=== PATIENT | male | born 1990 | race Caucasian/White ===

== ENCOUNTER 2016-08-30 22:05 | Inpatient (IN) | payer OTHER ==
--- NOTE | ~2016-08-30 | DS ---
Unit #: [id number] #: [id number] Patient: SEMAJ CEJA [id number] [address] [address] [id number] MR#: [id number] NAME: SEMAJ CEJA ROOM: 547 Age: 26 Sex: M Admission Date: 08/31/2016 : 1990 Discharge Date: 09/01/2016 Attending Physician: Syeda Irwin M.D. Primary Care Physician: Javier Louie M.D. DISCHARGE SUMMARY FINAL DIAGNOSES 1. Intractable nausea and vomiting, which is resolved. 2. Acute renal failure, most likely secondary to decreased intravascular volume, which is resolved. 3. Leukocytosis, possible secondary to dehydration which is resolved. 4. Opioid dependence/IV drug abuse. 5. Tobacco abuse. HOSPITAL COURSE A 26-year-old male who was admitted to the hospital on August 31, 2016 with vomiting. According to patient, he vomited multiple times. Came to ER and was admitted for dehydration and acute renal failure. Patient was treated with IV fluids, IV Protonix, and IV Zofran. Patient's blood workup is normal today. He wants to go home. Patient is able to tolerate diet. CT scan was done during hospitalization which shows dilated patulous lower esophagus with GI reflux. There is nothing to suggest esophageal stricture. Remaining exam was normal. Patient's urine drug screen is positive for amphetamine, marijuana, and opiates. Vital signs on discharge: Blood pressure is 114/75, respiratory rate 18, pulse 69, temperature 97.8, oxygen saturation is 98%. DISCHARGE INSTRUCTIONS 1. Patient is being discharged home in stable condition. 2. Followup primary care provider in one week. Dictated by... Rachel Dawn TD: 09/02/2016 10:17 JOB #: [id number] Unit #: [id number] #: [id number] Patient: SEMAJ CEJA DISCHARGE SUMMARY Page 1 of 1 X Syeda Irwin MD X DISCHARGE SUMMARY
--- NOTE | ~2016-08-30 | CT4 ---
[facility] A Service of [facility] & [facility] RADIOLOGY TEXT RESULTS PATIENT: SEMAJ CEJA LOCATION: [facility] 54- : [birth year] UNIT #: [id number] AGE: [address]: Syeda Irwin MD SEX: M ORDER DR: [id number] [facility] [address] [place], [place] [address] [id number] MR#: [id number] Acc #: [id number] NAME: SEMAJ CEJA : 1990 SEX: M STUDY DATE/TIME: 08/31/2016 02:45 UNIT: [facility] ROOM: [facility] STUDY DESCRIPTION: CT Abd and Pelv Wo Cont Attending Physician: Syeda Irwin M.D. Ordering Physician: Jan Raman M.D. Primary Care Physician: Javier Louie M.D. MEDICAL IMAGING REPORT This report is preliminary unless electronic signature is present EXAM CT abdomen and pelvis, 08/31 at 02:45. INDICATIONS Nausea and vomiting since 10:00 a.m. yesterday after using heroin. TECHNIQUE Axial noncontrast images were obtained through the abdomen and pelvis. Multiplanar reformats were obtained. No comparison. This CT exam was performed with one or more of the following radiation dose reduction techniques: automatic exposure control, adjustment of mA and/or kV according to patient size, and iterative reconstruction. FINDINGS Abdomen: Lung bases are clear. There is gastroesophageal reflux and the lower esophagus is dilated. The remainder of the unopacified GI tract is normal. No renal or ureteral stones. No hydronephrosis. The unenhanced solid organs are normal. No free fluid is seen. Pelvis: The appendix is normal. The remainder of the unopacified GI tract is normal as well. No lower ureteral stones. The bladder is normal. IMPRESSION 1. Dilated patulous lower esophagus with gastroesophageal reflux. There is nothing to suggest a lower esophageal stricture on these images. 2. The remainder of the GI tract including the appendix is normal. 3. No renal or ureteral stones. No hydronephrosis. Dictated by... Joselo Eckert Jr., M.D. THIS IS AN ELECTRONICALLY VERIFIED REPORT Joselo Eckert Jr., M.D. at 08/31/2016 9:22 PM [facility] A Service of [facility] RADIOLOGY TEXT RESULTS PATIENT: SEMAJ CEJA LOCATION: [place] [address] : [birth year] UNIT #: [id number] AGE: [address]: Syeda Irwin MD SEX: M ORDER DR: LUCIANA/elia TD: 08/31/2016 12:18 JOB #: [id number] MEDICAL IMAGING REPORT Page 1 of 1 COPY
--- NOTE | ~2016-08-30 | HP ---
Unit #: [id number] #: [id number] Patient: SEMJA CEJA [id number] [address] [address] [id number] I MR#: [id number] NAME: SEMAJ CEJA. ROOM: 54 Age: 26 Sex: M Admission Date: 08/31/2016 : 1990 Attending Physician: Syeda Irwin M.D. Primary Care Physician: Javier Louie M.D. HISTORY AND PHYSICAL CHIEF COMPLAINT Vomiting. HISTORY OF PRESENTING ILLNESS Mr. Marcial is a 26-year-old male who has a history of IV drug abuse, used IV heroin in the morning and then he started vomiting. According to him, he vomited almost 100 times. He was starting to get dizzy. He started to have abdominal pain and chest pain. Came to ER, was found to have acute renal failure, dehydration and leukocytosis. The patient is being admitted to the hospital. The patient is feeling much better. He was able to tolerate his liquid diet. He would like to eat some more. He is still nauseous. Still complaining of some abdominal pain. His throat is kind of sore, according to him because of vomiting so much. He does not complain of any history of fever or chills at home. No complaint of syncopal episode. He was dizzy, but that has improved a lot. He is just feeling very tired and would like to go to sleep. PAST MEDICAL HISTORY 1. History of asthma, which is mild. 2. History of tobacco abuse. 3. History of IV drug abuse. HOME MEDICATIONS None. FAMILY HISTORY Not significant. SOCIAL HISTORY The patient is a smoker. He smokes almost 1 pack per day for many years. He has no history of alcohol abuse. He does use opioid and has a history of IV drug abuse. REVIEW OF SYMPTOMS As per history of presenting illness. ALLERGIES No known drug allergies. PHYSICAL EXAMINATION GENERAL: The patient is being evaluated in room 547. Seems to be stable. Unit #: [id number] #: [id number] Patient: SEMAJ CEJA VITAL SIGNS: Blood pressure 124/77, respiratory rate 18, pulse is 89, temperature 98.1; on admission the patient's pulse was 113. He was tachycardic, and blood pressure was low, 112/78. HEENT: Head is normocephalic. Eye movements are normal. There is mild conjunctival congestion. NECK: Neck is supple. RESPIRATORY: Chest has fair air entry. No adventitious sounds. CVS: S1, S2 positive. Regular rhythm. ABDOMEN: Soft. No tenderness. No rigidity of rebound. EXTREMITIES: Negative edema. Pulses are palpable. [employer]: The patient is awake, alert and oriented x3. No focal neurologic deficits. DIAGNOSTIC STUDIES LAB WORKUP ON ADMISSION: WBC 22.7, hemoglobin 16, hematocrit 48.4, platelet count 269, although WBC count has reduced much with recent lab showing WBC of 14.2. BMP shows sodium 137, potassium 4.6, chloride 95, BUN 33, creatinine 2.2, and that has improved a lot with hydration, BUN 28, creatinine 1.4. Urinalysis was also done, which shows normal. RADIOLOGICAL STUDIES DONE DURING HOSPITALIZATION: CT scan of the abdomen, which shows dilated patulous lower esophagus with gastroesophageal reflux. Nothing to suggest a lower esophageal stricture. No renal or ureteral stones. No hydronephrosis. Everything else seems to be stable. ASSESSMENT 1. Patient is being admitted to telemetry unit with intractable vomiting. 2. Acute renal failure. 3. Leukocytosis. 4. Dehydration. 5. Opioid dependence with history of IV drug abuse. 6. Tobacco abuse. PLAN Admit to telemetry unit. IV fluids at the rate of 150 mL an hour is being started. IV Zofran on a p.r.n. basis. Protonix 40 mg daily. Blood cultures has been done. Urinalysis is normal. I doubt the patient has any infectious etiology. Will continue (1) . Will check lab workup again tomorrow morning. Blood cultures has been done. Dictated by Rachel Dawn TD: 08/31/2016 16:03 JOB #: [id number] Unit #: [id number] #: [id number] Patient: SEMAJ CEJA HISTORY AND PHYSICAL Page 1 of 1 X Syeda Irwin MD X HISTORY AND PHYSICAL
[~2016-08-30 22:05] MED LIST: ALBUTEROL17 GM INH; AUGMENTIN PO; DARVOCET-N 1001 TA1 PO; FLEXERIL10 MG PO; IBUPROFEN PO; LORTAB 5/500 TA1 TA1 PO; MOTRIN600 MG PO; NO MEDICATIONS; NORCO 5/325 TAB1 TAB PO; NYQUIL; PHENERGAN PO; SINGULAIR PO; VOLTAREN75 MG PO; ZITHROMAX PO
[2016-08-31 00:55] LABS: BASOPHIL% 0.2 % (0-2.5); HEMATOCRIT 48.4 % (38.0-50.0); LYMPHOCYTE# 1.6 X10e3 (1.0-3.5); MEAN CELL VOLUME 87.6 FL (83-96); MEAN CORPUSCULAR HGB CONC 33.1 g/dL (30-36); MONOCYTE# 1.5 X10e3 (0-1.0); MONOCYTE% 6.4 % (3.0-12.0); NEUTROPHIL# 19.6 X10e3 (1.5-7.1); NEUTROPHIL% 86.4 % (40-75); PLATELET COUNT 269 X10e3 (140-420); RED BLOOD COUNT 5.53 X10e (3.90-5.60); RED CELL DISTRIBUTION WIDTH 14.1 % (11.0-15.5); WHITE BLOOD COUNT 22.7 X10e3 (4.0-10.5)
[2016-08-31 00:56] LABS: DIFF IND YES
[2016-08-31 01:18] LABS: ALBUMIN SERUM 5.9 g/dL (3.5-5.0); BILIRUBIN, DIRECT 0.3 mg/dL (0.0-0.2); BILIRUBIN,TOTAL 1.3 mg/dL (0.2-2.0); CALCIUM SERUM 10.3 mg/dL (8.4-10.2); CREATININE SERUM 2.2 mg/dL (0.6-1.4); GLOM FILT RATE Estimated 39.9 mL/min (>60); POTASSIUM 4.6 mmol/L (3.5-5.1); PROTEIN TOTAL SERUM 9.9 g/dL (6.0-8.3)
[2016-08-31 01:25] LABS: PLATELET ESTIMATE NORMAL (NORMAL)
[2016-08-31 07:30] LABS: BASOPHIL# 0.1 X10e3 (0-0.3); BASOPHIL% 0.4 % (0-2.5); EOSINOPHIL% 0.2 % (0.0-7.0); HEMATOCRIT 39.4 % (38.0-50.0); LYMPHOCYTE# 3.7 X10e3 (1.0-3.5); LYMPHOCYTE% 19.4 % (17.0-45.0); MEAN CELL VOLUME 87.5 FL (83-96); MEAN CORPUSCULAR HEMOGLOBIN 28.8 PG (28-34); MEAN CORPUSCULAR HGB CONC 32.9 g/dL (30-36); MEAN PLATELET VOLUME 7.8 FL (6.5-11.5); MONOCYTE# 2.5 X10e3 (0-1.0); MONOCYTE% 13.1 % (3.0-12.0); NEUTROPHIL% 66.9 % (40-75); PLATELET COUNT 237 X10e3 (140-420); WHITE BLOOD COUNT 19.3 X10e3 (4.0-10.5)
[2016-08-31 07:34] LABS: DIFF IND NO
[2016-08-31 07:51] LABS: CALCIUM SERUM 8.7 mg/dL (8.4-10.2); CREATININE SERUM 1.4 mg/dL (0.6-1.4); GLOM FILT RATE Estimated 68.9 mL/min (>60); POTASSIUM 3.8 mmol/L (3.5-5.1)
[2016-08-31 08:55] LABS: URINE SOURCE CLEAN CATCH
[2016-08-31 09:01] LABS: URINE APPEARANCE CLEAR; URINE BILIRUBIN NEG (NEG); URINE BLOOD NEG (NEG); URINE COLOR YELLOW; URINE GLUCOSE NEG (NEG); URINE KETONE TRACE (NEG); URINE LEUKOCYTE ESTERASE NEG (NEG); URINE NITRATE NEG (NEG); URINE PROTEIN NEG (NEG); URINE SPECIFIC GRAVITY 1.014 (1.003-1.035); URINE UROBILINOGEN 0.2 MG/DL (NEG)
[2016-08-31 09:04] LABS: CULTURE INDICATED? NO
[2016-08-31] MEDS ORDERED: ALBUTEROL17 GM INH (09:31)
[2016-08-31 12:27] LABS: BASOPHIL# 0.1 X10e3 (0-0.3); BASOPHIL% 0.4 % (0-2.5); EOSINOPHIL# 0.2 X10e3 (0-0.7); EOSINOPHIL% 1.1 % (0.0-7.0); HEMOGLOBIN 12.1 gm/dL (13.0-16.0); LYMPHOCYTE# 4.1 X10e3 (1.0-3.5); LYMPHOCYTE% 28.5 % (17.0-45.0); MEAN CELL VOLUME 87.2 FL (83-96); MEAN CORPUSCULAR HEMOGLOBIN 29.3 PG (28-34); MEAN CORPUSCULAR HGB CONC 33.6 g/dL (30-36); MEAN PLATELET VOLUME 7.8 FL (6.5-11.5); MONOCYTE# 1.6 X10e3 (0-1.0); MONOCYTE% 11.6 % (3.0-12.0); NEUTROPHIL# 8.3 X10e3 (1.5-7.1); NEUTROPHIL% 58.4 % (40-75); PLATELET COUNT 208 X10e3 (140-420); RED BLOOD COUNT 4.13 X10e (3.90-5.60); RED CELL DISTRIBUTION WIDTH 14.2 % (11.0-15.5); WHITE BLOOD COUNT 14.2 X10e3 (4.0-10.5)
[2016-08-31 12:29] LABS: DIFF IND NO
[2016-08-31 15:53] LABS: AMPHETAMINE POS (NEG); BARBITURATES NEG (NEG); BENZODIAZEPINES NEG (NEG); COCAINE NEG (NEG); MARIJUANA POS (NEG); OPIATES POS (NEG); TRICYCLIC ANTIDEPRESSANTS NEG (NEG); U METHADONE NEG (NEG)
[2016-09-01 06:21] LABS: HEMATOCRIT 36.3 % (38.0-50.0); HEMOGLOBIN 12.1 gm/dL (13.0-16.0); MEAN CELL VOLUME 88.4 FL (83-96); MEAN CORPUSCULAR HEMOGLOBIN 29.3 PG (28-34); MEAN CORPUSCULAR HGB CONC 33.2 g/dL (30-36); MEAN PLATELET VOLUME 8.1 FL (6.5-11.5); RED BLOOD COUNT 4.11 X10e (3.90-5.60); RED CELL DISTRIBUTION WIDTH 14.2 % (11.0-15.5); WHITE BLOOD COUNT 8.5 X10e3 (4.0-10.5)
[2016-09-01 07:07] LABS: CALCIUM SERUM 8.7 mg/dL (8.4-10.2); GLOM FILT RATE Estimated 103.4 mL/min (>60); POTASSIUM 4.2 mmol/L (3.5-5.1)
== END 2016-09-01 18:36 | disposition home or self-care (01) | DRG 683 ==
LOC: CED 22:05 → C5B 08-31 03:55 → CEDOF 08-31 03:55 → CED 08-31 04:03 → C5B 08-31 09:57 → CEDOF 08-31 09:57 → C5B 09-01 18:36
PROVIDERS: Emergency Medicine; Physician Assistant Medical
DX: N17.9 Acute kidney failure, unspecified (principal); F11.20 Opioid dependence, uncomplicated; E86.0 Dehydration; R11.2 Nausea with vomiting, unspecified; F17.210 Nicotine dependence, cigarettes, uncomplicated; J45.909 Unspecified asthma, uncomplicated
CPT/HCPCS: 36415; 74176; 80048; 80076; 80307; 81003; 85025; 85027; 87040; 96361; 96374; 96375; 99285; C9113; J2405

== ENCOUNTER → 2016-11-24 | Outpatient (CLI) | payer OTHER ==
--- NOTE | ~2016-11-24 | CR170 ---
[facility]. [facility] A Service of [facility] & [facility] RADIOLOGY TEXT RESULTS PATIENT: SEMAJ CEJA LOCATION: [facility] : 90 UNIT #: [id number] AGE: [address]: Mary Gallo MD SEX: M ORDER DR: [id number] [address] [address] [id number] MR#: [id number] Acc #: [id number] NAME: SEMAJ CEJA : 1990 SEX: M STUDY DATE/TIME: 11/24/2016 14:15 UNIT: [facility] ROOM: STUDY DESCRIPTION: CR Knee 2 Views Rt Attending Physician: Mary Gallo M.D. Referring Physician: Mary Gallo M.D. Ordering Physician: Mary Gallo M.D. Primary Care Physician: Javier Louie M.D. MEDICAL IMAGING REPORT This report is preliminary unless electronic signature is present. EXAM Right knee 11/24/2016 INDICATION 26-year-old male with the history of osteoarthritis and pain for 3 weeks. No known injury. Multiple surgeries. TECHNIQUE AND COMPARISON 2 views of the right knee were performed and compared with 05/27/2005. FINDINGS Postop changes appearing to reflect prior ACL repair. No acute fracture. Probable trace to small joint effusion. Mild tricompartmental degenerative change. IMPRESSION 1. Prior operative repair, likely reflecting ACL surgery. Degenerative changes. Dictated by... Iván Foster M.D. THIS IS AN ELECTRONICALLY VERIFIED REPORT Iván Foster M.D. at 11/25/2016 6:06 PM GET/rhett TD: 11/25/2016 14:14 JOB #: [id number] MEDICAL IMAGING REPORT Page 1 of 1
== END | disposition home or self-care (01) ==
LOC: SRAD 14:10
DX: M17.11 Unilateral primary osteoarthritis, right knee (principal); Z98.890 Other specified postprocedural states
CPT/HCPCS: 73560